=== PATIENT | male | born 1970 | race Caucasian/White ===

== ENCOUNTER 2018-03-17 12:42 | Outpatient (CLI) | payer OTHER ==
--- NOTE | 2018-03-17 16:47 | RAD ---
RADIOGRAPH LEFT SHOULDER 3 VIEWS: Date: 03/17/18 HISTORY: 48-year-old male with nonspecific chronic left shoulder pain with decreased range of motion. FINDINGS: Moderate to severe joint space narrowing at the AC joint, with mild osteophytosis, mild sclerosis, an d tiny subchondral cysts. Minimal bony hypertrophy at the inferior aspect of the glenohumeral joint w ith mild joint space narrowing there. The rest of the glenohumeral joint appears normal. No HADD calc ifications. No destructive osseous lesions. No fracture or dislocation. IMPRESSION: Moderate osteoarthrosis of the acromioclavicular joint. POS: [facility]
--- NOTE | 2018-03-17 17:23 | RAD ---
CERVICAL SPINE SIX VIEWS: 03/17/2018 HISTORY: Cervical spine pain. COMPARISON: None. FINDINGS: Neutral lateral examination demonstrates no anterolisthesis or retrolisthesis. There is disk space n arrowing and degenerative endplate change at C5-C6 and C6-C7. There is posterior osteophytes formati on at C5-C6. Flexion and extension imaging demonstrate no anterolisthesis or retrolisthesis within t he cervical spine. No prevertebral soft tissue swelling. Multilevel mid cervical spine facet and uncovertebral osteophyte formation noted on frontal imaging, right greater than left, most prominent at C5-C6. The open mouth odontoid view/Fuch's view demonstra rich a normal appearing C1-C2 articulation and dens. IMPRESSION: Multilevel degenerative change. No acute osseous abnormality. POS: [facility]
== END 2018-03-17 12:43 | disposition home or self-care (01) ==
LOC: BICRAD 12:42
PROVIDERS: ATTEND Internal Medicine Rheumatology
DX: M25.512 Pain in left shoulder (principal); M54.2 Cervicalgia; M47.812 Spondylosis without myelopathy or radiculopathy, cervical region; M19.012 Primary osteoarthritis, left shoulder
CPT/HCPCS: 72050